=== PATIENT | female | born 1960 | race American Indian/Alaskan Native ===

== ENCOUNTER 2021-07-25 10:35 | Outpatient (CLI) | payer OTHER ==
--- NOTE | 2021-07-25 12:16 | XRay Report ---
. BILATERAL SHOULDERS 3 VIEWS INDICATION: BILATERAL SHOULDER PAIN. COMPARISON: None. IMPRESSION: Normal bone mineralization. No acute osseous abnormality or bone lesion. Mild acromiocl avicular osteoarthritic changes are noted bilaterally. The soft tissues are unremarkable. Signer Name: Malik Valentine Jr, MD Signed: 07/25/2021 12:12 PM Workstation Name: [id number]
--- NOTE | 2021-07-25 12:16 | XRay Report ---
THORACIC SPINE 2 VIEWS INDICATION: BACK PAIN. COMPARISON: None. IMPRESSION: Normal alignment. Mild multilevel degenerative disc disease is identified in the mid th oracic spine. No acute osseous or soft tissue abnormality. Signer Name: Malik Valentine Jr, MD Signed: 07/25/2021 12:12 PM Workstation Name: [id number]
--- NOTE | 2021-07-25 12:16 | XRay Report ---
Cervical spine 4 views INDICATION: Neck pain FINDINGS: Cervical spine alignment shows mild straightening. Advanced endplate changes with anterior posterior disc osteophytes at C3-C4 C4-C5. Cervicothoracic junction appears normal. Odontoid appears intact. Signer Name: Rajat Lopez MD Signed: 07/25/2021 12:11 PM Workstation Name: [id number]
== END 2021-07-25 10:36 | disposition home or self-care (01) ==
LOC: XRAY 10:35
PROVIDERS: ATTEND Internal Medicine
DX: M19.012 Primary osteoarthritis, left shoulder (principal); M19.011 Primary osteoarthritis, right shoulder; M47.814 Spondylosis without myelopathy or radiculopathy, thoracic region; R51.9 Headache, unspecified; M25.78 Osteophyte, vertebrae
CPT/HCPCS: 72040; 72072

== ENCOUNTER 2021-11-20 11:50 | Emergency (ER) | payer OTHER ==
[2021-11-20 11:56] VITALS: BP 169/99
[2021-11-20] MEDS ORDERED: ACETAMINOPHEN 500 MG TAB PO STA (14:36)
[2021-11-20] MEDS ORDERED: IBUPROFEN 800 MG TAB PO STA (14:36)
--- NOTE | 2021-11-20 14:37 | Emergency Department Report ---
ED General Adult HPI - General Chief complaint: Back Pain/Injury Stated complaint: back and neck pain Time Seen by Provider: 11/20/21 14:04 Source: patient, EMS Mode of arrival: Stretcher Limitations: No Limitations - History of Present Illness Initial comments: 61-year-old -[place]aced[place] female patient presents with complaints of neck pain and upper back pain after a slip and fall at [facility] today. Patient denies hitting her head or loss of consciousness. She states she slipped in the a wet puddle on the ground. No numbness/tingling or weakness in her arms. She rates her pain as a 7/10 in severity. Past medical history includes CHF - Related Data Previous Rx's Medication Instructions Recorded Last Taken Type Acetaminophen [Tylenol] 975 mg PO TID PRN #30 cap 11/20/21 Unknown Rx methocarbamoL [Methocarbamol] 750 mg PO TID PRN #15 tab 11/20/21 Unknown Rx Allergies Allergy/AdvReac Type Severity Reaction Status Date / Time meperidine HCl [From Demerol] AdvReac Itching Unverified 09/27/13 12:33 ED Review of Systems ROS: Stated complaint: back and neck pain Other details as noted in HPI Constitutional: denies: chills, fever Eyes: denies: vision change Cardiovascular: denies: chest pain Gastrointestinal: denies: abdominal pain, nausea, vomiting Musculoskeletal: back pain. denies: arthralgia Skin: denies: change in hair/nails Neurological: denies: headache, numbness, paresthesias ED Past Medical Hx - Past Medical History Previous Medical History?: Yes Hx Hypertension: Yes Hx Congestive Heart Failure: Yes - Surgical History Past Surgical History?: No - Social History Smoking Status: Light Tobacco Smoker - Medications Home Medications: Home Medications Medication Instructions Recorded Confirmed Last Taken Type Acetaminophen [Tylenol] 975 mg PO TID PRN #30 cap 11/20/21 Unknown Rx methocarbamoL [Methocarbamol] 750 mg PO TID PRN #15 tab 11/20/21 Unknown Rx ED Physical Exam - General Limitations: No Limitations General appearance: alert, in no apparent distress, obese - Head Head exam: Present: atraumatic, normocephalic - Eye Eye exam: Present: normal appearance - Neck Neck exam: Present: tenderness (Bilateral trapezius muscle tenderness and vertebral tenderness to palpation noted without obvious deformity), full ROM - Respiratory Respiratory exam: Absent: respiratory distress - Cardiovascular Cardiovascular Exam: Present: regular rate - Back Exam Back exam: Present: paraspinal tenderness (Upper thoracic), vertebral tenderness (Upper thoracic, no obvious deformities or step-offs noted) - Neurological Exam Neurological exam: Present: alert, oriented X3, normal gait. Absent: motor sensory deficit - Psychiatric Psychiatric exam: Present: normal affect, normal mood - Skin Skin exam: Present: warm, dry, intact, normal color. Absent: rash ED Course Vital Signs 11/20/21 11/20/21 11:51 17:54 Temperature 98.0 F Pulse Rate 101 H 86 Respiratory 18 Rate Blood Pressure 169/99 [Left] O2 Sat by Pulse 99 Oximetry ED Medical Decision Making - Radiology Data Radiology results: report reviewed XR spine cervical 2-3V HISTORY: pain after slip and fall COMPARISON: None. TECHNIQUE: 3 view(s) of the cervical spine obtained. FINDINGS: Vertebrae: Mild reversal of the lordosis with apex at C4-C5. Vertebral body heights are preserved. C1 and C2 are congruent. Odontoid process is intact. Spondylosis:There is significant decreased intervertebral disc space height with osteophyte formation and endplate sclerosis involving C4-C5 and C5-C6. Soft tissues: No prevertebral soft tissue thickening. IMPRESSION: 1. No acute findings. 2. Advanced C4-C5 and C5-C6 spondylosis. THORACIC SPINE 2 VIEWS INDICATION: BACK PAIN. COMPARISON: None. IMPRESSION: Normal alignment. Mild multilevel degenerative disc disease is identified in the mid thoracic spine. No acute osseous or soft tissue abnormality. - Medical Decision Making 61-year-old -[place] female patient presents with complaints of neck pain and upper back pain after a slip and fall at [facility] today. Patient denies hitting her head or loss of consciousness. She states she slipped in the a wet puddle on the ground. No numbness/tingling or weakness in her arms. She rates her pain as a 7/10 in severity. Past medical history includes CHF X-rays are negative for any acute abnormalities. Will treat for neck and back strain/sprain with muscle relaxers, icing, Tylenol. Recommend follow-up with primary care doctor in 3 to 5 days. Patient is otherwise well-appearing and stable for discharge home. Strict return precautions were discussed in detail with patient who verbalized understanding Critical care attestation.: If time is entered above; I have spent that time in minutes in the direct care of this critically ill patient, excluding procedure time. ED Disposition Clinical Impression: Neck pain, Back pain, thoracic Disposition: 01 HOME / SELF CARE / HOMELESS Is pt being admited?: No Condition: Stable Instructions: Thoracic Strain, [id number], Cervical Sprain, [id number] Prescriptions: methocarbamoL [Methocarbamol] 750 mg PO TID PRN #15 tab PRN Reason: muscle spasm/tightness Acetaminophen [Tylenol] 975 mg PO TID PRN #30 cap PRN Reason: pain Referrals: PRIMARY CARE, [Primary Care Provider] - 3-5 Days [facility] [Provider Group] - 3-5 Days Forms: Work/School Release Form(ED)
--- NOTE | 2021-11-20 15:58 | XRay Report ---
XR spine cervical 2-3V HISTORY: pain after slip and fall COMPARISON: None. TECHNIQUE: 3 view(s) of the cervical spine obtained. FINDINGS: Vertebrae: Mild reversal of the lordosis with apex at C4-C5. Vertebral body heights are preserved. C1 and C2 are congruent. Odontoid process is intact. Spondylosis:There is significant decreased intervertebral disc space height with osteophyte formation and endplate sclerosis involving C4-C5 and C5-C6. Soft tissues: No prevertebral soft tissue thickening. IMPRESSION: 1. No acute findings. 2. Advanced C4-C5 and C5-C6 spondylosis. Signer Name: Zev Mason MD Signed: 11/20/2021 3:53 PM Workstation Name: [id number]
--- NOTE | 2021-11-20 15:58 | XRay Report ---
THORACIC SPINE 2 VIEWS INDICATION: Back pain after slip and fall. COMPARISON: No relevant prior imaging study available. FINDINGS: VERTEBRAE: No acute fracture. Normal alignment. DISC SPACES: Multilevel mild spondylosis is noted. FACET JOINTS: No significant abnormality. SOFT TISSUES: No significant abnormality. ADDITIONAL FINDINGS: No additional significant findings. IMPRESSION: 1. No acute findings. 2. Mild thoracic spondylosis. Signer Name: Anthony Garcia MD Signed: 11/20/2021 3:53 PM Workstation Name: [id number]
== END 2021-11-20 17:56 | disposition home or self-care (01) ==
LOC: ED 11:50
DX: M54.2 Cervicalgia (principal); M54.6 Pain in thoracic spine; M54.9 Dorsalgia, unspecified; I11.0 Hypertensive heart disease with heart failure; I50.9 Heart failure, unspecified; Z87.891 Personal history of nicotine dependence; Z79.899 Other long term (current) drug therapy; Z91.09 Other allergy status, other than to drugs and biological substances
CPT/HCPCS: 72040; 72070; 99284

== ENCOUNTER 2022-06-20 11:27 | Emergency (ER) | payer OTHER ==
--- NOTE | 2022-06-20 12:40 | XRay Report ---
XR chest routine 2V INDICATION / CLINICAL INFORMATION: Upper Respiratory Infection. COMPARISON: None available. FINDINGS: SUPPORT DEVICES: None. HEART /PULMONARY VASCULATURE: No significant abnormality. LUNGS / PLEURA: No significant pulmonary or pleural abnormality. No pneumothorax. ADDITIONAL FINDINGS: No significant additional findings. IMPRESSION: 1. No acute findings. Signer Name: Roge Kwok MD Signed: 06/20/2022 12:35 PM Workstation Name: [employer]
[2022-06-20 12:53] LABS: Basophils % (Auto) 0.7 % (0.0-1.8); Eosinophils # (Auto) 0.2 K/mm3 (0.0-0.4); Eosinophils % (Auto) 2.7 % (0.0-4.3); Hematocrit 39.7 % (30.3-42.9); Hemoglobin 12.9 gm/dl (10.1-14.3); Lymphocytes # (Auto) 1.8 K/mm3 (1.2-5.4); Lymphocytes % (Auto) 26.6 % (13.4-35.0); Mean Corpuscular HGB Conc 33 % (30-34); Mean Corpuscular Volume 95 fl (79-97); Monocytes % (Auto) 14.7 % (0.0-7.3); Platelet Count 268 K/mm3 (140-440); Red Blood Count 4.18 M/mm3 (3.65-5.03); Red Cell Distribution Width 14.1 % (13.2-15.2)
[2022-06-20 13:20] LABS: BUN/Creatinine Ratio 10; Blood Urea Nitrogen 8 mg/dL (7-17); Calcium 9.5 mg/dL (8.4-10.2); Hemolysis Index 18
[2022-06-21] MEDS ORDERED: IPRATROPIUM 0.02% NEBU 2.5 ML IH ONE (01:33)
[2022-06-21] MEDS ORDERED: ACETAMINOPHEN 500 MG TAB PO ONE (01:33)
[2022-06-21] MEDS ORDERED: predniSONE 20 MG TAB PO ONE (01:33)
[2022-06-21] MEDS ORDERED: ALBUTEROL 2.5 MG/3 ML NEBU IH ONE (01:33)
--- NOTE | 2022-06-21 04:18 | Emergency Department Report ---
ED General Adult HPI - General Chief complaint: Upper Respiratory Infection Stated complaint: CHEST PAIN/SHORTNESS OF BREATH/COUGH Time Seen by Provider: 06/21/22 01:32 Source: patient Mode of arrival: Ambulatory Limitations: No Limitations - History of Present Illness Initial comments: Patient 62-year-old female with history of asthma who presents for cough shortness of breath and wheezing x1 week. Patient denies fevers or chills no nausea or vomiting. No chest pain. No diaphoresis. Symptoms are exacerbated by environmental exposure. Symptoms are relieved by nothing tried. Patient drove self to ED tonight patient is alert oriented ambulatory with steady gait in no acute distress. Severity scale (0 -10): 8 - Related Data Previous Rx's Medication Instructions Recorded Last Taken Type Acetaminophen [Tylenol] 975 mg PO TID PRN #30 cap 11/20/21 Unknown Rx methocarbamoL [Methocarbamol] 750 mg PO TID PRN #15 tab 11/20/21 Unknown Rx Albuterol Mdi (or & Nicu Only) 2 puff IH QID PRN #8.5 gram 06/21/22 Unknown Rx [ProAir HFA Inhaler] Azithromycin 500 mg PO DAILY #5 tab 06/21/22 Unknown Rx Ibuprofen [Motrin 800 MG tab] 800 mg PO Q8HR PRN #30 tablet 06/21/22 Unknown Rx predniSONE [Deltasone] 20 mg PO DAILY 5 Days #10 tab 06/21/22 Unknown Rx Allergies Allergy/AdvReac Type Severity Reaction Status Date / Time meperidine HCl [From Demerol] AdvReac Itching Verified 06/20/22 12:02 ED Review of Systems ROS: Stated complaint: CHEST PAIN/SHORTNESS OF BREATH/COUGH Other details as noted in HPI Constitutional: denies: chills, fever Eyes: denies: eye pain, eye discharge, vision change ENT: denies: ear pain, throat pain Respiratory: cough, shortness of breath, wheezing Cardiovascular: denies: chest pain, palpitations Endocrine: no symptoms reported, unexplained weight loss. denies: intolerance to cold, intolerance to heat Gastrointestinal: denies: abdominal pain, nausea, diarrhea Genitourinary: as per HPI Musculoskeletal: denies: back pain, joint swelling, arthralgia Skin: denies: rash, lesions Neurological: denies: headache, weakness, paresthesias, vertigo Psychiatric: denies: anxiety, depression Hematological/Lymphatic: denies: easy bleeding, easy bruising ED Past Medical Hx - Past Medical History Hx Hypertension: Yes Hx Congestive Heart Failure: Yes - Social History Smoking Status: Light Tobacco Smoker - Medications Home Medications: Home Medications Medication Instructions Recorded Confirmed Last Taken Type Acetaminophen [Tylenol] 975 mg PO TID PRN #30 cap 11/20/21 Unknown Rx methocarbamoL [Methocarbamol] 750 mg PO TID PRN #15 tab 11/20/21 Unknown Rx Albuterol Mdi (or & Nicu Only) 2 puff IH QID PRN #8.5 gram 06/21/22 Unknown Rx [ProAir HFA Inhaler] Azithromycin 500 mg PO DAILY #5 tab 06/21/22 Unknown Rx Ibuprofen [Motrin 800 MG tab] 800 mg PO Q8HR PRN #30 tablet 06/21/22 Unknown Rx predniSONE [Deltasone] 20 mg PO DAILY 5 Days #10 tab 06/21/22 Unknown Rx ED Physical Exam - General Limitations: No Limitations General appearance: alert, in no apparent distress - Head Head exam: Present: normocephalic, normal inspection - Eye Eye exam: Present: normal appearance, PERRL, EOMI Pupils: Present: normal accommodation - ENT ENT exam: Present: mucous membranes moist - Neck Neck exam: Present: normal inspection, full ROM. Absent: tenderness, meni ngismus, lymphadenopathy - Respiratory Respiratory exam: Present: normal lung sounds bilaterally, wheezes. Absent: stridor - Cardiovascular Cardiovascular Exam: Present: regular rate, normal rhythm, normal heart sounds. Absent: systolic murmur, diastolic murmur, rubs, gallop - GI/Abdominal GI/Abdominal exam: Present: soft, normal bowel sounds, pulsatile mass. Absent: distended, tenderness, guarding, rebound, rigid - Rectal Rectal exam: Present: deferred ED Course Vital Signs 06/20/22 06/20/22 06/21/22 11:56 21:51 00:48 Temperature 98.7 F 98.4 F Pulse Rate 87 91 H 88 Respiratory 20 16 Rate Blood Pressure 166/80 Blood Pressure 158/84 139/82 [Right] O2 Sat by Pulse 96 95 93 Oximetry ED Medical Decision Making - Lab Data Result diagrams: 06/20/22 12:29 06/20/22 12:29 Labs 06/20/22 06/20/22 12:29 12:29 WBC 6.7 RBC 4.18 Hgb 12.9 Hct 39.7 MCV 95 MCH 31 MCHC 33 RDW 14.1 Plt Count 268 Lymph % (Auto) 26.6 [place] % (Auto) 14.7 H Eos % (Auto) 2.7 Baso % (Auto) 0.7 Lymph # (Auto) 1.8 [place] # (Auto) 1.0 H Eos # (Auto) 0.2 Baso # (Auto) 0.0 Seg Neutrophils % 55.3 Seg Neutrophils # 3.7 Sodium 141 Potassium 4.1 Chloride 101.1 Carbon Dioxide 30 Anion Gap 14 BUN 8 Creatinine 0.8 Estimated GFR > 60 BUN/Creatinine Ratio 10 Glucose 100 Calcium 9.5 - Radiology Data Radiology results: report reviewed, image reviewed XR chest routine 2V INDICATION / CLINICAL INFORMATION: Upper Respiratory Infection. COMPARISON: None available. FINDINGS: SUPPORT DEVICES: None. HEART /PULMONARY VASCULATURE: No significant abnormality. LUNGS / PLEURA: No significant pulmonary or pleural abnormality. No pneumothorax. ADDITIONAL FINDINGS: No significant additional findings. IMPRESSION: 1. No acute findings. Signer Name: Lida Sauceda MD Signed: 06/20/2022 12:35 PM Workstation Name: [id number] Transcribed By: JS Dictated By: LIDA SAUCEDA MD Electronically Authenticated By: LIDA SAUCEDA MD Signed Date/Time: 06/20/221234 DD/ 34 TD/TT: - Medical Decision Making Symptoms improved at this time wheezing is resolved plan DC to home with prescriptions. Follow-up with primary care doctor in 2 to 3 days. Return to emergency department should symptoms worsen. Patient verbalized agreement understanding with discharge plan. Patient DC'd home in stable condition at this time. Critical care attestation.: If time is entered above; I have spent that time in minutes in the direct care of this critically ill patient, excluding procedure time. ED Disposition Clinical Impression: Asthma Qualifiers: Asthma severity: moderate Asthma persistence: unspecified Asthma complication type: unspecified Qualified Code(s): J45.909 - Unspecified asthma, uncomplicated Disposition: HOME / SELF CARE / HOMELESS Is pt being admited?: No Does the pt Need Aspirin: No Condition: Stable Instructions: Asthma (ED), Asthma, Adult Additional Instructions: Take medication as prescribed, return to emergency department should symptoms worsen. Prescriptions: Azithromycin 500 mg PO DAILY #5 tab predniSONE [Deltasone] 20 mg PO DAILY 5 Days #10 tab Ibuprofen [Motrin 800 MG tab] 800 mg PO Q8HR PRN #30 tablet PRN Reason: pain Albuterol Mdi (or & Nicu Only) [ProAir HFA Inhaler] 2 puff IH QID PRN #8.5 gram PRN Reason: Shortness Of Breath Referrals: BARBARA CERVANTES MD [Staff Physician] - 3-5 Days Forms: Work/School Release Form(ED) Time of Disposition: 04:38
[2022-06-21 04:48] VITALS: BP 134/73
--- NOTE | 2022-06-21 13:34 | Electrocardiograph Report ---
[facility] Test Date: 2022-06-20 Test Time: 12:09:37 Pat Name: KAILA COPELAND Department: Room: Gender: F Service Delivery Supervisor: NURSE : 1960 Requested By: DIANA GUY Order Number: [id number] Reading MD: Aylin Umana Measurements Intervals [place] Rate: 87 P: 58 [place]: 138 QRS: -9 QRSD: 76 T: 72 QT: 394 QTc: 474 Interpretive Statements Sinus rhythm No previous ECG available for comparison Electronically Signed On 06-21-2022 13:34:11 EDT by Aylin Umana
== END 2022-06-21 05:12 | disposition home or self-care (01) ==
LOC: ED 11:27
DX: J45.909 Unspecified asthma, uncomplicated (principal); I10 Essential (primary) hypertension; F17.200 Nicotine dependence, unspecified, uncomplicated; Z88.8 Allergy status to other drugs, medicaments and biological substances
CPT/HCPCS: 36415; 71046; 80048; 85025; 93005; 94640; 99284